=== PATIENT | male | born 1980 | race Two or more races ===

== ENCOUNTER 2024-06-23 07:27 | Emergency (ER) | payer MEDICAID, OTHER ==
[~2024-06-23] VITALS: Ht 190.5 cm; Wt 115.6 kg
[2024-06-23 08:07] VITALS: TEMP 98
[2024-06-23] MEDS: LIDOCAINE 1% HCL (LOCAL ANESTH.) INJ 20ML MDV ID ONE (08:13)
[2024-06-23 08:28] VITALS: BP 135/87; PULSE 63; RESP 18; O2SAT 99
[2024-06-23] MEDS ORDERED: CEPH500C PO (08:39)
== END 2024-06-23 08:39 | disposition home or self-care (01) ==
LOC: ER 07:27
DX: S61.412A Laceration without foreign body of left hand, initial encounter (principal); W25.XXXA Contact with sharp glass, initial encounter; Y93.89 Activity, other specified; Y92.89 Other specified places as the place of occurrence of the external cause; Y99.8 Other external cause status
CPT/HCPCS: 12002; 99283; J2003

== ENCOUNTER 2024-07-07 06:42 | Emergency (ER) | payer MEDICAID ==
[~2024-07-07] VITALS: Ht 190.5 cm; Wt 109.0 kg
[~2024-07-07 06:42] MED LIST: CEPH500C PO
[2024-07-07 07:25] VITALS: BP 142/83; PULSE 73; RESP 16; TEMP 98.4; O2SAT 98
--- NOTE | 2024-07-07 07:37 | ED.PDOC ---
History of Present Illness HPI Comments This is a 43-year-old gentleman that comes in for suture removal. States stitches were placed 14 days ago in his left hand he has feels like her glasses still in his hand he has had oozing pus all week very very painful his hand is swollen and it is hard for him to move his fingers. Chief Complaint: Suture Removal Time Seen by MD: 06:51 Reviewed Notes: Nurses Notes, Medications, Allergies Allergies: Coded Allergies: NO KNOWN ALLERGIES (Unverified , 06/23/24) Home Meds Active Scripts Cephalexin Monohydrate (Cephalexin) 500 Mg Cap, 1 CAP PO QID for 5 Days, #20 CAP 0 Refills Prov:DONTA HANCOCK Bran WASHATERIA ATTENDANT 06/23/24 Information Source: Patient Mode of Arrival: Ambulatory Severity: Mild Timing: Days Duration: Since onset Past Medical History PAST MEDICAL HISTORY: Denies Surgical History: Denies all surgeries Family History Family History: Reviewed,noncontributory to illness Social History Smoker: Non-Smoker Alcohol: Denies ETOH Use Drugs: Denies Drug Use Integumetry: reports: laceration, wounds Physical Exam General Appearance: None HEENT: Normal ENT Inspection, PERRL/EOMI, Pharynx Normal Neck: Full Range of Motion, Non-Tender Respiratory: Lungs Clear, No Respiratory Distress, Normal Breath Sounds Cardiovascular: Normal Peripheral Pulses, Regular Rate/Rhythm Breast Exam: Deferred Gastrointestinal: Normal Bowel Sounds Genitalia: Deferred Pelvic: Deferred Rectal: Deferred Extremities: Normal inspection, Normal range of motion Neurologic: Alert, No Motor Deficits, Normal Mood Cerebellar Function: Normal Reflexes: Normal Skin: Wounds (Left hand swollen with tenderness and macerated skin to the wound site very tender to touch with palpation.) Lymphatic: No Adenopathy Was a procedure done? Was a procedure done?: No Differential Dx Considerations may include: Cellulitis versus abscess, versus foreign body. X-Ray, Labs, Meds, VS Vital Signs Date Time Temp Pulse Resp B/P (MAP) Pulse Ox O2 Delivery O2 Flow Rate FiO2 07/07/24 07:25 98.4 73 16 142/83 (102) 98 98.4 07/07/24 07:25 73 16 98 Room Air 07/07/24 07:02 98.4 73 16 142/82 (102) 98 Lab Test 07/07/24 08:05 Range/Units White Blood Count 7.1 4.4-10.8 10^3/uL Red Blood Count 5.11 4.5-5.90 10^6/uL Hemoglobin 15.8 13.5-17.5 g/dL Hematocrit 46.1 41.0-53.0 % Mean Corpuscular Volume 90.1 80.0-100.0 fL Mean Corpuscular Hemoglobin 30.9 28.0-32.0 pg Mean Corpuscular Hemoglobin Concent 34.3 32.0-36.0 g/dL Red Cell Distribution Width 14.4 H 11.8-14.3 % Platelet Count 237 140-450 10^3/uL Mean Platelet Volume 8.9 6.9-10.8 fL Neutrophils (%) (Auto) 51.2 37.0-80.0 % Lymphocytes (%) (Auto) 37.7 10.0-50.0 % Monocytes (%) (Auto) 7.8 0.0-12.0 % Eosinophils (%) (Auto) 2.3 0.0-7.0 % Basophils (%) (Auto) 1.0 0.0-2.0 % Neutrophils # (Auto) 3.7 1.6-8.6 10 ^3/uL Lymphocytes # (Auto) 2.7 0.4-5.4 10 ^3/uL Monocytes # (Auto) 0.6 0-1.3 10 ^3/uL Eosinophils # (Auto) 0.2 0-0.8 10 ^3/uL Basophils # (Auto) 0.1 0-0.2 10 ^3/uL Nucleated Red Blood Cells 0.1 % Current Medications Medications (Trade) Dose Ordered Sig/Madhuri Route Start Time Stop Time Status Last Admin Ceftriaxone Sodium (Rocephin) 1,000 mg ONCE ONCE IM 07/07/24 07:45 07/07/24 07:46 DC 07/07/24 07:40 Acetaminophen/ Hydrocodone Bitart ([place] 5/325MG Tab) 1 tab ONCE ONCE PO 07/07/24 08:30 07/07/24 08:31 DC 07/07/24 08:23 X-Ray, Labs, Meds, VS Comment Patient seen and examined by me. Patient is here for suture removal although looks very infected. Patient is unable to move his hand without having pain and has increased swelling. We will order a x-ray and CBC as well as give a shot of Rocephin 1 g IM. WBC is normal at 7.1. I offered the patient the option of numbing up the wound and trying to irrigate for foreign body patient states he is too uncomfortable would rather not do that. I will start him on some oral antibiotics. Instructed to keep the wound clean and dry I also told him that if a small piece of glass is still in there it will come out by itself in time. PROCEDURE(s): LHAN - L HAND 3V XRAY REASON: FOREIGN BODY ORDER NUMBER(s): [id number], ACCESSION NUMBER(s): [id number] CLINICAL INDICATION: FOREIGN BODY TECHNIQUE: XY L HAND 3V XRAY Comparison: None FINDINGS/IMPRESSION: : There is no evidence of acute fracture or dislocation. No appreciable radiopaque foreign body. Limited examination secondary to persistent flexion of patient since. Time of 1ST Reevaluation: 08:43 Reevaluation 1ST: Improved Patient Education/Counseling: Diagnosis, Treatment, Prognosis, Need For Follow Up Family Education/Counseling: No Family Present Departure 1 Departure Time of Disposition: 08:43 Impression: Primary Impression: Cellulitis Disposition: 01 HOME / SELF CARE / HOMELESS Condition: Good Additional Instructions: Your x-ray does not show a foreign body in it There is still a possibility that a small piece of glass might come out which is normal. Please take the antibiotics as directed Clean the wound daily put topical antibiotic ointment on it If you notice increased redness worsening pain or swelling come back to the ER he will need IV antibiotics. e-Prescriptions Sulfamethoxazole W/Trimethopri (Bactrim Ds Tablet) 1 Tab Tb 1 TAB PO BID for 10 Days, #20 TAB Prov: EDWIN [place] 07/07/24 Discharged With: Self Critical Care Note Critical Care Time?: No Stability Stability form required: EDWIN Veras Jul 07, 2024 07:37
[2024-07-07] MEDS: cefTRIAXone SOD 1,000 MG VL IM ONE (07:40)
[2024-07-07 08:17] LABS: Basophils # (auto) 0.1 10 ^3/uL (0-0.2); Eosinophils # (auto) 0.2 10 ^3/uL (0-0.8); Eosinophils % (auto) 2.3 % (0.0-7.0); Hematocrit 46.1 % (41.0-53.0); Hemoglobin 15.8 g/dL (13.5-17.5); Lymphocytes # (auto) 2.7 10 ^3/uL (0.4-5.4); Lymphocytes % (auto) 37.7 % (10.0-50.0); Mean Corpuscular Hemoglobin 30.9 pg (28.0-32.0); Mean Corpuscular Hgb Conc. 34.3 g/dL (32.0-36.0); Mean Corpuscular Volume 90.1 fL (80.0-100.0); Monocytes # (auto) 0.6 10 ^3/uL (0-1.3); Monocytes % (auto) 7.8 % (0.0-12.0); Neutrophils # (auto) 3.7 10 ^3/uL (1.6-8.6); Neutrophils % (auto) 51.2 % (37.0-80.0); Nucleated Red Blood Cells % 0.1 %; Platelet Count (auto) 237 10^3/uL (140-450); Red Blood Cells 5.11 10^6/uL (4.5-5.90); Red Cell Distribution Width 14.4 % (11.8-14.3); White Blood Cell 7.1 10^3/uL (4.4-10.8)
[2024-07-07] MEDS: HYDROcodone-ACET 5/325MG TAB PO ONE (08:23)
--- NOTE | 2024-07-07 08:28 | DVH ---
CLINICAL INDICATION: FOREIGN BODY TECHNIQUE: XY L HAND 3V XRAY Comparison: None FINDINGS/IMPRESSION: : There is no evidence of acute fracture or dislocation. No appreciable radiopaque foreign body. Limited examination secondary to persistent flexion of patient since.
[2024-07-07] MEDS ORDERED: BACDST PO (08:45)
== END 2024-07-07 08:48 | disposition home or self-care (01) ==
LOC: ER 06:42
DX: L03.114 Cellulitis of left upper limb (principal); S61.412D Laceration without foreign body of left hand, subsequent encounter; X58.XXXD Exposure to other specified factors, subsequent encounter
CPT/HCPCS: 36415; 73130; 85025; 96372; 99284; J0696